=== PATIENT | female | born 1995 | race African-American/Black ===

== ENCOUNTER 2023-12-25 01:46 | Inpatient (IN) | payer SELFPAY ==
[~2023-12-25] VITALS: Ht 167.6 cm; Wt 68.0 kg
[2023-12-25] MEDS: LIDOCAINE HCL/EPINEPHRINE 1%-EPI 1:100,000 20 ML VIAL INFIL ONE (03:00)
[2023-12-25] MEDS: BACITRACIN ZINC OINT UDPKT TOP ONE (03:00)
[2023-12-25] MEDS: TETANUS, DIPHTHERIA, PERTUSSIS VAC/PF 0.5ML (>10YR OLD) IM ONE (03:49)
[2023-12-25] MEDS: ACETAMINOPHEN 325MG TABLET PO ONE (03:51)
[2023-12-25] MEDS ORDERED: ACETAMINOPHEN 650MG/20.3ML UDC GT PRN (06:15)
[2023-12-25] MEDS ORDERED: ONDANSETRON HCL 4MG/2ML INJ IV PRN ×2 (06:15→09:15)
[2023-12-25] MEDS ORDERED: DEXT 5%/0.45% NACL 1000ML 1,000 ML IV SCH (06:15)
[2023-12-25] MEDS ORDERED: GUAIFENESIN 200MG/10ML SUGAR FREE UDC PO PRN (06:15)
[2023-12-25] MEDS ORDERED: DOCUSATE SODIUM 100MG CAPSULE PO PRN (06:15)
[2023-12-25] MEDS ORDERED: ACETAMINOPHEN 325MG TABLET PO PRN ×2 (06:15→09:15)
[2023-12-25] MEDS ORDERED: IPRATROPIUM/ALBUTEROL 0.5-3(2.5)MG/3ML NEB HHN PRN ×2 (06:15→09:15)
[2023-12-25] MEDS ORDERED: CLONIDINE 0.1MG TABLET PO PRN ×2 (06:15→09:15)
[2023-12-25 06:40] LABS: HEMATOCRIT 35.5 % (36.0-48.0); HEMOGLOBIN 11.8 g/dL (12.0-16.0); MEAN CORPUSCULAR HEMOGLOBIN 29.4 pg (28.0-32.0); MEAN CORPUSCULAR HGB CONC 33.3 g/dL (31.0-37.0); MEAN CORPUSCULAR VOLUME 88.4 fL (81.0-99.0); PLATELET 183 x1000/uL (130-400); RED BLOOD CELL COUNT 4.02 mill/uL (4.2-5.4); RED CELL DISTRIBUTION WIDTH 13.1 % (11.6-14.6)
[2023-12-25 06:54] LABS: CHLORIDE 111 mEq/L (98-107); POTASSIUM 3.5 mEq/L (3.5-5.1); SODIUM 143 mEq/L (136-145)
[2023-12-25 06:55] LABS: CALCIUM 8.8 mg/dL (8.7-10.4); CARBON DIOXIDE 27 mEq/L (21-32)
[2023-12-25 07:00] LABS: CREATININE 0.7 mg/dL (0.6-1.0); GLUCOSE 88 mg/dL (70-105); UREA NITROGEN BLOOD 9 mg/dL (9-23)
[2023-12-25 07:02] LABS: ALANINE AMINOTRANSFERASE 12 IU/L (10-49); ALBUMIN 4.3 g/dL (3.2-4.8); ASPARTATE AMINOTRANSFERASE 20 IU/L (<34)
[2023-12-25 07:03] LABS: BILIRUBIN TOTAL 0.5 mg/dL (0.1-1.0); PROTEIN TOTAL 6.3 g/dL (6.0-8.3)
[2023-12-25 07:17] LABS: HCG SCREEN NEGATIVE
[2023-12-25] MEDS ORDERED: MAGNESIUM/ALUMINUM HYDROXIDE/SIMETHICONE 30ML UDC PO PRN (09:15)
[2023-12-25] MEDS ORDERED: DOXY1TAB3 PO (11:46)
[2023-12-25] MEDS ORDERED: PREN1TAB23 PO (11:46)
[2023-12-25] MEDS ORDERED: OLAN5TAB74 PO (11:46)
[2023-12-25 12:00] VITALS: BP 112/71; PULSE 70; RESP 18; TEMP 96.1
[2023-12-25 16:00] VITALS: BP 115/71; PULSE 54; RESP 18; TEMP 98.8
[2023-12-25 16:40] VITALS: BP 112/71; PULSE 70; RESP 18; TEMP 96.1
[2023-12-25] MEDS: ACETAMINOPHEN 325MG TABLET PO PRN (19:56)
[2023-12-25 20:00] VITALS: BP 118/70; PULSE 59; RESP 17; TEMP 97.6
[2023-12-25 20:40] LABS: *AMPHETAMINES SCREEN URINE NEGATIVE (NEGATIVE); *BARBITURATES SCREEN URINE NEGATIVE (NEGATIVE); *BENZODIAZEPINES SCREEN URINE NEGATIVE (NEGATIVE); *COCAINE SCREEN URINE NEGATIVE (NEGATIVE); CANNABINOID URINE SCREEN PRESUMPTIVE POSITIVE (NEGATIVE); ECSTASY MDMA SCREEN URINE NEGATIVE (NEGATIVE); METHADONE URINE SCREEN NEGATIVE (NEGATIVE); OPIATES URINE SCREEN NEGATIVE (NEGATIVE); PHENCYCLIDINE URINE SCREEN NEGATIVE (NEGATIVE)
[2023-12-25 21:06] VITALS: BP 116/60; PULSE 61; TEMP 98.7; O2SAT 98
== END 2023-12-25 21:31 | disposition home or self-care (01) | DRG 115 ==
LOC: ER 01:58 → EDBEDREQ 05:29 → 8WST 08:12
PROVIDERS: ADMIT Internal Medicine; ATTEND Internal Medicine
PROC: 0HQLXZZ Repair Left Lower Leg Skin, External Approach (ICD-10-PCS; principal; 2023-12-25)
DX: S09.90XA Unspecified injury of head, initial encounter (principal); S81.812A Laceration without foreign body, left lower leg, initial encounter; Z88.6 Allergy status to analgesic agent; Z88.8 Allergy status to other drugs, medicaments and biological substances; Y08.89XA Assault by other specified means, initial encounter; Y93.89 Activity, other specified; Y92.89 Other specified places as the place of occurrence of the external cause; Y99.8 Other external cause status
CPT/HCPCS: 36415; 70551; 80053; 80305; 84703; 85027; 90715; 99285; J3490